=== PATIENT | female | born 1985 | race African-American/Black ===

== ENCOUNTER 2018-09-03 21:37 | Emergency (ER) | payer MEDICAID ==
[~2018-09-03] VITALS: Ht 167.6 cm; Wt 67.6 kg
[2018-09-03 21:57] VITALS: BP 136/85
== END 2018-09-04 03:04 | disposition left against medical advice (07) ==
LOC: EDBD 21:37 → ER 21:44
DX: R07.89 Other chest pain (principal); Z53.21 Procedure and treatment not carried out due to patient leaving prior to being seen by health care provider

== ENCOUNTER 2018-11-09 20:10 | Emergency (ER) | payer MEDICAID ==
[~2018-11-09] VITALS: Ht 167.6 cm; Wt 67.6 kg
[2018-11-09 20:30] VITALS: BP 125/64
[2018-11-09] MEDS ORDERED: ACETAMINOPHEN 325 MG TAB PO ONE ×2 (20:38→21:00)
== END 2018-11-09 23:30 | disposition home or self-care (01) ==
LOC: ER 20:10
DX: J03.00 Acute streptococcal tonsillitis, unspecified (principal)

== ENCOUNTER 2019-01-02 13:45 | Emergency (ER) | payer MEDICAID ==
[~2019-01-02] VITALS: Ht 165.1 cm; Wt 68.0 kg
[2019-01-02 13:45] VITALS: BP 214/73
== END 2019-01-02 22:48 | disposition left against medical advice (07) ==
LOC: EDBD 13:45 → ER 13:45
DX: M79.602 Pain in left arm (principal); R07.9 Chest pain, unspecified; Z53.21 Procedure and treatment not carried out due to patient leaving prior to being seen by health care provider
CPT/HCPCS: 93005

== ENCOUNTER 2019-03-12 13:55 | Emergency (ER) | payer MEDICAID ==
[~2019-03-12] VITALS: Ht 167.6 cm; Wt 70.8 kg
[2019-03-12 14:10] VITALS: BP 147/95
== END 2019-03-12 15:11 | disposition home or self-care (01) ==
LOC: ER 13:55
DX: G58.8 Other specified mononeuropathies (principal); I10 Essential (primary) hypertension

== ENCOUNTER 2019-06-21 20:21 | Emergency (ER) | payer MEDICAID ==
[~2019-06-21] VITALS: Ht 167.6 cm; Wt 75.7 kg
[2019-06-21 21:10] LABS: Urine Bacteria NONE SEEN /hpf (None Seen); Urine Blood Negative /uL (Negative); Urine Specific Gravity 1.006 (1.001-1.035); Urine WBC <1 /hpf (0 - 5)
[2019-06-21 22:08] LABS: Basophils # (auto) 0.1 uL; Basophils % (auto) 1.3 % (0.0-2.0); Eosinophils # (auto) 0.1 uL; Eosinophils % (auto) 1.5 % (0.0-7.0); Hematocrit 39.3 % (36.0-46.0); Hemoglobin 12.7 g/dL (12.2-16.2); Lymphocytes # (auto) 2.4 uL; Lymphocytes % (auto) 35.1 % (10.0-50.0); Mean Corpuscular Hemoglobin 27.2 pg (28.0-32.0); Mean Corpuscular Hgb Conc. 32.4 g/dL (32.0-36.0); Mean Corpuscular Volume 83.8 fL (80.0-100.0); Monocytes # (auto) 0.5 uL; Monocytes % (auto) 7.3 % (0.0-12.0); Neutrophils # (auto) 3.7 uL; Neutrophils % (auto) 54.8 % (37.0-80.0); Nucleated Red Blood Cells % 0.1 %; Platelet Count (auto) 288 10^3/uL (140-450); Red Blood Cells 4.69 10^6/uL (4.0-5.20); Red Cell Distribution Width 14.3 % (11.8-14.3); White Blood Cell 6.8 10^3/uL (4.4-10.8)
[2019-06-21 22:28] LABS: Albumin 3.8 g/dL (3.4-5.0); BUN/Creatinine Ratio 14.9; Potassium 3.9 mmol/L (3.5-5.1)
[2019-06-21 22:48] LABS: Bilirubin, Total 0.2 mg/dL (0.2-1.0); Total Protein 7.9 g/dL (6.4-8.2)
[2019-06-22 09:30] VITALS: BP 113/80
== END 2019-06-22 09:47 | disposition home or self-care (01) ==
LOC: ER 20:25
DX: I10 Essential (primary) hypertension (principal); F17.210 Nicotine dependence, cigarettes, uncomplicated; Z90.49 Acquired absence of other specified parts of digestive tract
CPT/HCPCS: 36415; 70450; 71046; 80053; 81001; 83880; 84702; 85025; 93005

== ENCOUNTER 2019-10-04 09:44 | Emergency (ER) | payer MEDICAID ==
[~2019-10-04] VITALS: Ht 167.6 cm; Wt 79.8 kg
[2019-10-04] MEDS ORDERED: SODIUM CHLORIDE 0.9% 1,000 ML IVB ONE (10:01)
[2019-10-04] MEDS ORDERED: MORPHINE SULFATE 4 MG/ML SYR/VIAL IV ONE ×2 (10:15→11:30)
[2019-10-04] MEDS ORDERED: ONDANSETRON HCL 4 MG/2 ML VIAL IV ONE (10:15)
[2019-10-04 10:24] LABS: Urine Bacteria NONE SEEN /hpf (None Seen); Urine Blood TRACE /uL (Negative); Urine Mucus FEW (None Seen); Urine Specific Gravity 1.022 (1.001-1.035); Urine WBC 1 /hpf (0 - 5)
[2019-10-04 10:31] LABS: Basophils # (auto) 0 uL; Basophils % (auto) 0.8 % (0.0-2.0); Eosinophils # (auto) 0 uL; Eosinophils % (auto) 0.2 % (0.0-7.0); Hematocrit 37.9 % (36.0-46.0); Hemoglobin 12.7 g/dL (12.2-16.2); Lymphocytes # (auto) 0.4 uL; Lymphocytes % (auto) 6.8 % (10.0-50.0); Mean Corpuscular Hemoglobin 27.5 pg (28.0-32.0); Mean Corpuscular Hgb Conc. 33.5 g/dL (32.0-36.0); Mean Corpuscular Volume 82.2 fL (80.0-100.0); Monocytes # (auto) 0.8 uL; Neutrophils # (auto) 4.8 uL; Neutrophils % (auto) 79.2 % (37.0-80.0); Nucleated Red Blood Cells % 0.1 %; Platelet Count (auto) 274 10^3/uL (140-450); Red Blood Cells 4.61 10^6/uL (4.0-5.20); Red Cell Distribution Width 13.3 % (11.8-14.3)
[2019-10-04 10:52] LABS: Albumin 3.6 g/dL (3.4-5.0); Calcium 8.4 mg/dL (8.5-10.1); Potassium 3.5 mmol/L (3.5-5.1)
[2019-10-04 10:58] VITALS: BP 125/78
[2019-10-04 10:58] LABS: BUN/Creatinine Ratio 7.6; Bilirubin, Total 0.1 mg/dL (0.2-1.0); Total Protein 7.7 g/dL (6.4-8.2)
== END 2019-10-04 11:57 | disposition home or self-care (01) ==
LOC: ER 09:51
DX: R10.9 Unspecified abdominal pain (principal); R11.0 Nausea; I10 Essential (primary) hypertension; F17.210 Nicotine dependence, cigarettes, uncomplicated; Z90.49 Acquired absence of other specified parts of digestive tract
CPT/HCPCS: 36415; 74176; 80053; 81001; 83690; 85025; 96374; 96375; 99284; J2270; J2405; J7030

== ENCOUNTER 2020-02-24 06:22 | Emergency (ER) | payer MEDICAID ==
[~2020-02-24] VITALS: Ht 167.6 cm; Wt 88.0 kg
[2020-02-24 06:26] VITALS: BP 138/72
[2020-02-24] MEDS ORDERED: KETOROLAC TROMETH 60MG/2ML VIAL IM ONE (07:30)
== END 2020-02-24 07:40 | disposition home or self-care (01) ==
LOC: ER 06:22
DX: S83.91XA Sprain of unspecified site of right knee, initial encounter (principal); I10 Essential (primary) hypertension; Z90.49 Acquired absence of other specified parts of digestive tract; X50.1XXA Overexertion from prolonged static or awkward postures, initial encounter; Y93.89 Activity, other specified; Y92.89 Other specified places as the place of occurrence of the external cause; Y99.8 Other external cause status
CPT/HCPCS: 73562; 96372; 99283; J1885

== ENCOUNTER 2021-03-04 21:32 | Emergency (ER) | payer MEDICAID ==
[~2021-03-04] VITALS: Ht 167.6 cm; Wt 90.7 kg
[2021-03-04 22:18] LABS: Urine WBC None Seen /hpf (0 - 5)
[2021-03-04 22:21] LABS: Basophils # (auto) 0.1 10 ^3/uL (0-0.2); Basophils % (auto) 1.2 % (0.0-2.0); Eosinophils # (auto) 0.2 10 ^3/uL (0-0.8); Eosinophils % (auto) 2.9 % (0.0-7.0); Hemoglobin 13.2 g/dL (12.2-16.2); Lymphocytes # (auto) 3.7 10 ^3/uL (0.4-5.4); Mean Corpuscular Volume 79.4 fL (80.0-100.0); Monocytes # (auto) 0.7 10 ^3/uL (0-1.3); Monocytes % (auto) 7.9 % (0.0-12.0); Nucleated Red Blood Cells % 0.1 %; Platelet Count (auto) 356 10^3/uL (140-450); Red Blood Cells 4.91 10^6/uL (4.0-5.20); Red Cell Distribution Width 16.2 % (11.8-14.3); White Blood Cell 8.7 10^3/uL (4.4-10.8)
[2021-03-04 22:33] LABS: Urine Bacteria NONE SEEN /hpf (None Seen); Urine Blood TRACE /uL (Negative)
[2021-03-04 22:42] LABS: Albumin 3.6 g/dL (3.4-5.0); Calcium 8.9 mg/dL (8.5-10.1); Magnesium 1.9 mg/dL (1.6-2.6); Potassium 3.7 mmol/L (3.5-5.1)
[2021-03-04 22:47] LABS: BUN/Creatinine Ratio 16.7; Bilirubin, Total 0.1 mg/dL (0.2-1.0); Total Protein 8.4 g/dL (6.4-8.2)
[2021-03-05 03:00] VITALS: BP 130/84
== END 2021-03-05 04:06 | disposition left against medical advice (07) ==
LOC: ER 21:33
DX: S39.012A Strain of muscle, fascia and tendon of lower back, initial encounter (principal); I10 Essential (primary) hypertension; F17.210 Nicotine dependence, cigarettes, uncomplicated; Z98.890 Other specified postprocedural states; Z90.49 Acquired absence of other specified parts of digestive tract; X58.XXXA Exposure to other specified factors, initial encounter; Y93.89 Activity, other specified; Y92.89 Other specified places as the place of occurrence of the external cause; Y99.8 Other external cause status
CPT/HCPCS: 36415; 80053; 81001; 82150; 83690; 83735; 84702; 85025

== ENCOUNTER 2021-04-11 03:10 | Emergency (ER) | payer MEDICAID ==
[~2021-04-11] VITALS: Ht 175.3 cm; Wt 72.6 kg
[2021-04-11] MEDS ORDERED: KETOROLAC TROMETH 60MG/2ML VIAL IM ONE (05:00)
[2021-04-11 05:35] VITALS: BP 141/63
[2021-04-11 06:13] LABS: Urine Bacteria FEW /hpf (None Seen); Urine Blood 3+ /uL (Negative); Urine Specific Gravity 1.012 (1.001-1.035); Urine WBC 2091 /hpf (0 - 5)
[2021-04-11] MEDS ORDERED: ONDANSETRON ODT 4 MG TAB PO ONE (06:30)
[2021-04-11] MEDS ORDERED: MORPHINE SULFATE INJECTION 2 MG/ML SYRG IM ONE (06:30)
== END 2021-04-11 07:13 | disposition home or self-care (01) ==
LOC: EDBD 03:10 → ER 03:12
DX: M79.661 Pain in right lower leg (principal); L52 Erythema nodosum; F17.210 Nicotine dependence, cigarettes, uncomplicated; I10 Essential (primary) hypertension; Z90.49 Acquired absence of other specified parts of digestive tract
CPT/HCPCS: 81001; 93971; 96372; 99284; J1885; J2270; Q0162

== ENCOUNTER 2024-03-18 20:43 | Emergency (ER) | payer MEDICAID, MEDICARE ==
[~2024-03-18] VITALS: Ht 167.6 cm; Wt 94.2 kg
[2024-03-18 20:48] VITALS: BP 150/94; PULSE 84; RESP 16; O2SAT 98
== END 2024-03-19 01:53 | disposition left against medical advice (07) ==
LOC: ER 20:43
DX: M79.602 Pain in left arm (principal); Z53.21 Procedure and treatment not carried out due to patient leaving prior to being seen by health care provider

== ENCOUNTER 2024-11-21 09:54 | Emergency (ER) | payer MEDICAID ==
[2024-11-21 10:07] VITALS: BP 158/90; PULSE 82; RESP 17; O2SAT 95
--- NOTE | 2024-11-21 10:46 | ED.PDOC ---
History of Present Illness HPI Comments 39 year old female presents to the ED with a chief complaint of HIV exposure onset 10 months ago. Patient states she had sexual intercourse 10 months ago, was told by a mutual friend 3 days ago the individual tested positive for HIV. Patient has no symptoms. PMHx of HTN. Denies abdominal pain. chest pain, sh ortness of breath, cough, congestion, headache, dizziness, dysuria, hematuria, vaginal discharge. No other symptoms or modifying factors present at this time. 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 Family History Family History: No family hx of DM, No family hx ofKidney andrzej, No family hx of Liver andrzej, No family hx of Lung andrzej, No family hx of Stroke, Family hx of Cancer, Family hx of heart andrzej Social History Smoker: Cigarettes Alcohol: Occasionally Drugs: Denies Drug Use Lives In: Home Constitutional: denies: chills, diaphoresis, fatigue, fever, malaise, sweats, weakness, others EENTM: denies: blurred vision, double vision, ear bleeding, ear discharge, ear drainage, ear pain, ear ringing, eye pain, eye redness, hearing loss, mouth pain, mouth swelling, nasal discharge, nose bleeding, nose congestion, nose pain, photophobia, tearing, throat pain, throat swelling, voice changes, others Respiratory: denies: cough, hemoptysis, orthopnea, SOB at rest, shortness of breath, SOB with excertion, stridor, wheezing, others Cardiovascular: denies: chest pain, dizzy spells, diaphoresis, Dyspnea on exertion, edema, irregular heart beat, left arm pain, lightheadedness, palpitations, PND, syncope, others Gastrointestinal: denies: abdomen distended, abdominal pain, blood streaked bowels, constipated, diarrhea, dysphagia, difficulty swallowing, hematemesis, melena, nausea, poor appetite, poor fluid intake, rectal bleeding, rectal pain, vomiting, others Genitourinary: reports: others (HIV exposure ); denies: abnormal vagina bleeding, burning, dyspareunia, dysuria, flank pain, frequency, hematuria, incontinence, pain, , vagina discharge, urgency Neurological: denies: dizziness, fainting, headache, left sided numbness, left sided weakness, numbness, paresthesia, pre-existing deficit, right sided numbness, right sided weakness, seizure, speech problems, tingling, tremors, weakness, others Musculoskeletal: denies: back pain, gout, joint pain, joint swelling, muscle pa in, muscle stiffness, neck pain, others Integumetry: denies: bruises, change in color, change in hair/nails, dryness, laceration, lesions, lumps, rash, wounds, others Allergic/Immunocompromised: denies: Difficulty Healing, Frequent Infections, Hives, Itching, others Hematologic/Lymphatic: denies: anemia, blood clots, easy bleeding, easy bruising, swollen glands, others Endocrine: denies: excessive hunger, excessive sweating, excessive thirst, excessive urination, flushing, intolerance to cold, intolerance to heat, unexplained weight gain, unexplained weight loss, others Psychiatric: denies: anxiety, bipolar disorder, depression, hopeless, panic disorder, schizophrenia, sleepless, suicidal, others All Other Systems: Reviewed and Negative Physical Exam General Appearance: Moderate Distress, Normal HEENT: Normal ENT Inspection, Pharynx Normal, TMs Normal Neck: Full Range of Motion, Non-Tender, Normal, Normal Inspection Respiratory: Chest Non-Tender, Lungs Clear, No Accessory Muscle Use, No Respiratory Distress, Normal Breath Sounds Cardiovascular: No Edema, No JVD, No Murmur, No Gallop, Normal Peripheral Pulses, Regular Rate/Rhythm Breast Exam: Deferred Gastrointestinal: No Organomegaly, Non Tender, No Pulsatile Mass, Normal Bowel Sounds, Soft Genitalia: Deferred Pelvic: Deferred Rectal: Deferred Extremities: No calf tenderness, Normal capillary refill, Normal inspection, Normal range of motion, Non-tender, No pedal edema Musculoskeletal : Apperance: Normal Neurologic: Alert, lineman a class II-XII nml as Tested, No Motor Deficits, Normal Affect, Normal Mood, No Sensory Deficits Cerebellar Function: Normal Reflexes: Normal Skin: Dry, Normal Color, Warm Peripheral Pulses: 3+ Radial (R), 3+ Radial (L) Lymphatic: No Adenopathy Was a procedure done? Was a procedure done?: No Differential Dx Considerations may include: Sexually transmitted disease Anxiety X-Ray, Labs, Meds, VS Vital Signs Date Time Temp Pulse Resp B/P (MAP) Pulse Ox O2 Delivery O2 Flow Rate FiO2 11/21/24 10:07 98.3 82 17 158/90 (112) 95 Patient alert. She is anxious. Worried that she may have sexual transmitted disease. Vitals stable. Answering all questions. No sign of any injury. Explained to the patient. Was told to follow up with her primary care physician. Was told to come back if there is any problem. Time of 1ST Reevaluation: 11:44 Reevaluation 1ST: Unchanged Patient Education/Counseling: Diagnosis, Treatment, Prognosis Family Education/Counseling: No Family Present Additional Information The following tests were ordered, and results were reviewed by me: HEPATITIS B SURFACE ANTIBODY, HEPATITIS B SURFACE ANTIGEN, HEPATITIS C ANTIBODYM HIV 1&2 ANTIBODY, UA I discussed treatment and results with medical personnel and patient Departure 1 Departure Time of Disposition: 11:45 Impression: Primary Impression: Anxiety Disposition: 01 HOME / SELF CARE / HOMELESS Condition: Good Discharged With: Self Critical Care Note Critical Care Time?: No Stability Stability form required: No Heart Score Heart Score: Heart Score Response (Comments) Value History N/A 0 EKG N/A 0 Age N/A 0 Risk Factors N/A 0 Troponin N/A 0 Total 0 I personally scribed for OLEGARIO FAITH MD ([email or web address]) on 11/21/24 at 10:46. Electronically submitted by Sweetie Carranza ([email or web address]). I personally scribed for OLEGARIO FAITH MD ([email or web address]) on 11/21/24 at 10:57. Electronically submitted by Sweetie Carranza ([email or web address]). OLEGARIO FAITH MD Nov 21, 2024 10:46
== END 2024-11-21 13:03 | disposition home or self-care (01) ==
LOC: ER 09:54
DX: F41.9 Anxiety disorder, unspecified (principal); I10 Essential (primary) hypertension; F17.210 Nicotine dependence, cigarettes, uncomplicated; Z20.6 Contact with and (suspected) exposure to human immunodeficiency virus [HIV]; Z90.49 Acquired absence of other specified parts of digestive tract